=== PATIENT | male | born 1950 | race Hispanic/Latino ===

== ENCOUNTER 2020-04-22 23:47 | Emergency (ER) | payer MEDICARE ==
--- NOTE | 2020-04-23 00:19 | Emergency Department Report ---
ED Chest Pain HPI - General Chief Complaint: Chest Pain Stated Complaint: CHEST PAIN Time Seen by Provider: 04/23/20 00:07 Source: patient Mode of arrival: Ambulatory Limitations: No Limitations - History of Present Illness Initial Comments: This is a 69-year-old male who presents to the emergency department via EMS from home with complaint of left-sided chest pain with radiation to the left arm that started just prior to presentation, around 11 PM this evening. He has a tingling feeling going down the left arm. It is associated with some mild ruth ann rtness of breath. He denies any fever, abdominal pain, back pain, nausea, vomiting, diaphoresis. Currently his chest pain is 9 out of 10 in intensity. He did not take anything for his symptoms prior to presentation, but he received 3 sublingual nitroglycerin and 50 mcg of fentanyl in route with EMS without much relief. No alleviating factors, but the pain worsens with certain movements of his body. He has a past medical history of previous pulmonary embolism for which she is treated with 5 mg of Coumadin. He is a tobacco smoker but denies any illicit drug use. No family history of early cardiac disease or AL's. No recent travel or sick contacts at home. He does not have a primary care physician or cableway operator. Severity scale (0 -10): 6 - Related Data Home Medications Medication Instructions Recorded Confirmed Last Taken Coumadin 5 mg PO DAILY 04/23/20 04/23/20 Unknown Allergies Allergy/AdvReac Type Severity Reaction Status Date / Time aspirin Allergy Unknown Verified 06/13/13 19:26 Heart Score - HEART Score History: Slightly suspicious EKG: Normal Age: > 65 Risk factors: No known risk factors Troponin: < normal limit HEART Score: 2 - Critical Actions Critical Actions: 0-3 pts:0.9-1.7%risk of adverse cardiac event.Candidate for discharge ED Review of Systems ROS: Stated complaint: CHEST PAIN Other details as noted in HPI Comment: All other systems reviewed and negative Constitutional: denies: chills, fever Eyes: denies: eye pain, vision change ENT: denies: ear pain, throat pain Respiratory: shortness of breath. denies: cough Cardiovascular: chest pain. denies: palpitations Gastrointestinal: denies: abdominal pain, vomiting Genitourinary: denies: dysuria, discharge Musculoskeletal: denies: back pain, joint swelling Skin: denies: rash, lesions Neurological: paresthesias. denies: headache, weakness ED Past Medical Hx - Past Medical History Hx Congestive Heart Failure: No Hx Diabetes: No Hx Deep Vein Thrombosis: Yes Hx Pulmonary Embolism: Yes Hx Asthma: No Hx COPD: No Additional medical history: [place] filter placed at 2009 - Surgical History Past Surgical History?: Yes Additional Surgical History: Yaz filter - Social History Smoking Status: Never Smoker Substance Use Type: None - Medications Home Medications: Home Medications Medication Instructions Recorded Confirmed Last Taken Type Coumadin 5 mg PO DAILY 04/23/20 04/23/20 Unknown History ED Physical Exam - General Limitations: No Limitations - Other Other exam information: GENERAL: The patient is well-developed well-nourished. HENT: Normocephalic. Atraumatic. Patient has moist mucous membranes. EYES: Extraocular motions are intact. NECK: Supple. Trachea is midline. CHEST/LUNGS: Clear to auscultation. There is no respiratory distress noted. Chest pain is reproducible to palpation of the chest wall. No crepitus or defor mity. HEART/CARDIOVASCULAR: Regular. There is no tachycardia. There is no murmur. ABDOMEN: Abdomen is soft, nontender. Patient has normal bowel sounds. SKIN: Skin is warm and dry. NEURO: The patient is awake, alert, and oriented. The patient is cooperative. Normal speech. MUSCULOSKELETAL: There is no tenderness or deformity. ED Course Vital Signs 04/23/20 04/23/20 00:08 01:52 Temperature 98 F Pulse Rate 65 56 L Respiratory 16 16 Rate Blood Pressure 123/65 Blood Pressure 108/52 [Left] O2 Sat by Pulse 95 95 Oximetry - Reevaluation(s) Reevaluation #1: 04/23/20 05:13 Lab Results 04/23/20 04/23/20 04/23/20 Range/Units 00:45 00:45 00:45 WBC 4.5 (4.5-11.0) K/mm3 RBC 4.28 (3.65-5.03) M/mm3 Hgb 13.1 (11.8-15.2) gm/dl Hct 38.3 (35.5-45.6) % MCV 90 (84-94) fl MCH 31 (28-32) pg MCHC 34 (32-34) % RDW 14.8 (13.2-15.2) % Plt Count 142 (140-440) K/mm3 Lymph % (Auto) 43.6 H (13.4-35.0) % [place] % (Auto) 5.6 (0.0-7.3) % Eos % (Auto) 2.6 (0.0-4.3) % Baso % (Auto) 0.8 (0.0-1.8) % Lymph # (Auto) 2.0 (1.2-5.4) K/mm3 [place] # (Auto) 0.3 (0.0-0.8) K/mm3 Eos # (Auto) 0.1 (0.0-0.4) K/mm3 Baso # (Auto) 0.0 (0.0-0.1) K/mm3 Seg Neutrophils % 47.4 (40.0-70.0) % Seg Neutrophils # 2.1 (1.8-7.7) K/mm3 PT 16.6 H (12.2-14.9) Sec. INR 1.33 H (0.87-1.13) APTT 29.7 (24.2-36.6) Sec. D-Dimer (0-234) ng/mlDDU Sodium 141 (137-145) mmol/L Potassium 3.8 (3.6-5.0) mmol/L Chloride 105.6 (98-107) mmol/L Carbon Dioxide 24 (22-30) mmol/L Anion Gap 15 mmol/L BUN 9 (9-20) mg/dL Creatinine 0.9 (0.8-1.3) mg/dL Estimated GFR > 60 ml/min BUN/Creatinine Ratio 10 % Glucose 100 (75-100) mg/dL Calcium 9.1 (8.4-10.2) mg/dL Total Bilirubin 0.20 (0.1-1.2) mg/dL AST 12 (5-40) units/L ALT 11 (7-56) units/L Alkaline Phosphatase 80 (35-129) units/L Troponin T < 0.010 (0.00-0.029) ng/mL Total Protein 5.7 L (6.3-8.2) g/dL Albumin 3.6 L (3.9-5) g/dL Albumin/Globulin Ratio 1.7 % 04/23/20 04/23/20 Range/Units 03:30 03:30 WBC (4.5-11.0) K/mm3 RBC (3.65-5.03) M/mm3 Hgb (11.8-15.2) gm/dl Hct (35.5-45.6) % MCV (84-94) fl MCH (28-32) pg MCHC (32-34) % RDW (13.2-15.2) % Plt Count (140-440) K/mm3 Lymph % (Auto) (13.4-35.0) % [place] % (Auto) (0.0-7.3) % Eos % (Auto) (0.0-4.3) % Baso % (Auto) (0.0-1.8) % Lymph # (Auto) (1.2-5.4) K/mm3 [place] # (Auto) (0.0-0.8) K/mm3 Eos # (Auto) (0.0-0.4) K/mm3 Baso # (Auto) (0.0-0.1) K/mm3 Seg Neutrophils % (40.0-70.0) % Seg Neutrophils # (1.8-7.7) K/mm3 PT (12.2-14.9) Sec. INR (0.87-1.13) APTT (24.2-36.6) Sec. D-Dimer 158.20 (0-234) ng/mlDDU Sodium (137-145) mmol/L Potassium (3.6-5.0) mmol/L Chloride (98-107) mmol/L Carbon Dioxide (22-30) mmol/L Anion Gap mmol/L BUN (9-20) mg/dL Creatinine (0.8-1.3) mg/dL Estimated GFR ml/min BUN/Creatinine Ratio % Glucose (75-100) mg/dL Calcium (8.4-10.2) mg/dL Total Bilirubin (0.1-1.2) mg/dL AST (5-40) units/L ALT (7-56) units/L Alkaline Phosphatase (35-129) units/L Troponin T < 0.010 (0.00-0.029) ng/mL Total Protein (6.3-8.2) g/dL Albumin (3.9-5) g/dL Albumin/Globulin Ratio % Reevaluation #2: 04/23/20 05:14 Vital Signs 04/23/20 04/23/20 00:08 01:52 Temperature 98 F Pulse Rate 65 56 L Respiratory 16 16 Rate Blood Pressure 123/65 Blood Pressure 108/52 [Left] O2 Sat by Pulse 95 95 Oximetry MOSHE score - Moshe Score Age > 65: (1) Yes Aspirin use within the Past 7 Days: (0) No 3 or more CAD Risk Factors: (0) No 2 or more Angina events in past 24 hrs: (1) Yes Known CAD with more than 50% Stenosis: (0) No Elevated Cardiac Markers: (0) No ST Deviation Greater than 0.5mm: (0) No MOSHE Score: 2 ED Medical Decision Making - Lab Data Result diagrams: 04/23/20 00:45 04/23/20 00:45 - EKG Data -: EKG Interpreted by Me EKG shows normal: sinus rhythm (PVCs), axis, intervals, QRS complexes, ST-T waves Rate: normal - EKG Data When compared to previous EKG there are: previous EKG unavailable Interpretation: normal EKG (PVCs) - Radiology Data Radiology results: image reviewed interpreted by me: Chest x-ray does not show any acute process. There are no pleural effusions, obvious pneumonia and there is no pneumothorax. No significant cardiomegaly. - Medical Decision Making This patient presents to the emergency department with complaint of left-sided chest pain that started this evening. On examination there is reproducible tenderness to palpation along the chest wall without any crepitus or deformity. Chest x-ray does not show any pneumonia, pleural effusions, pneumothorax, focal consolidation, or any other acute process. EKG did not show any morphology consistent with ST elevation myocardial infarction or any dysrhythmia. Patient's labs have been mostly unremarkable including CBC, metabolic panel, negative troponins x2 and a negative D-dimer. He was given a dose of Toradol and upon reevaluation he is feeling greatly improved. The patient was seen resting comfortably, if not sleeping, multiple times throughout his ED course. He is low on the heart and MOSHE score. For all these reasons the patient appears safe for discharge home at this time. His contact information has been sent over to [facility], and someone from their office should be contacting him shortly for close outpatient follow-up as part of our [facility] low risk chest pain protocol. Patient will return to the emergency department with any worsening of his symptoms or with any acute distress. Critical Care Time: No Critical care attestation.: If time is entered above; I have spent that time in minutes in the direct care of this critically ill patient, excluding procedure time. ED Disposition Clinical Impression: Atypical chest pain, Chest wall pain Disposition: TO HOME OR SELFCARE Is pt being admited?: No Condition: Stable Instructions: Chest Pain (ED), Costochondritis (ED) Additional Instructions: Please follow-up with a primary care physician in the next few days. I am sending your contact information over to the [facility], and someone from their office should be contacting you shortly for close outpatient follow-up. I have also given you a referral for one of their cableway operator, Dr. Barnett, to make an appointment for follow-up in case they do not contact you in a reasonable amount of time. Return to the emergency department with any worsening of your symptoms, new or concerning symptoms not addressed during this current emergency department visit, or with any acute distress. Referrals: PRIMARY MD [facility] [Primary Care Provider] - 2-3 Days NITZA BARNETT MD [Staff Physician] - 2-3 Days CHRISTINE MONDRAGON MD [Staff Physician] - 2-3 Days [facility] [Provider Group] - 2-3 Days Time of Disposition: 05:03
--- NOTE | 2020-04-23 01:01 | XRay Report ---
CHEST 1 VIEW 12:28 AM INDICATION / CLINICAL INFORMATION: Chest pain. COMPARISON: 03/30/10. FINDINGS: SUPPORT DEVICES: None. HEART / MEDIASTINUM: The heart size and pulmonary vasculature are normal. The aorta is normal in me[place]ul [place]. LUNGS / PLEURA: No significant pulmonary or pleural abnormality. No pneumothorax. ADDITIONAL FINDINGS: No significant additional findings. IMPRESSION: No acute abnormality or significant change. Signer Name: Iggy Berger MD Signed: 04/23/2020 12:56 AM Workstation Name: [id number]
[2020-04-23 01:49] LABS: Basophils % (Auto) 0.8 % (0.0-1.8); Eosinophils # (Auto) 0.1 K/mm3 (0.0-0.4); Eosinophils % (Auto) 2.6 % (0.0-4.3); Hematocrit 38.3 % (35.5-45.6); Hemoglobin 13.1 gm/dl (11.8-15.2); Lymphocytes % (Auto) 43.6 % (13.4-35.0); Mean Corpuscular HGB Conc 34 % (32-34); Mean Corpuscular Volume 90 fl (84-94); Monocytes # (Auto) 0.3 K/mm3 (0.0-0.8); Monocytes % (Auto) 5.6 % (0.0-7.3); Platelet Count 142 K/mm3 (140-440); Red Blood Count 4.28 M/mm3 (3.65-5.03); Red Cell Distribution Width 14.8 % (13.2-15.2)
[2020-04-23 02:05] LABS: Alanine Aminotransferase 11 units/L (7-56); Albumin 3.6 g/dL (3.9-5); BUN/Creatinine Ratio 10; Blood Urea Nitrogen 9 mg/dL (9-20); Calcium 9.1 mg/dL (8.4-10.2); Hemolysis Index 2
[2020-04-23] MEDS ORDERED: KETOROLAC 30 MG/1 ML INJ IM ONE (02:14)
[2020-04-23 02:15] LABS: INR 1.33 (0.87-1.13)
[2020-04-23 02:16] LABS: Partial Thromboplastin Time 29.7 Sec. (24.2-36.6)
[2020-04-23 05:36] VITALS: BP 129/69
== END 2020-04-23 05:30 | disposition home or self-care (01) ==
LOC: ED 23:47
DX: R07.89 Other chest pain (principal); M79.602 Pain in left arm; Z86.711 Personal history of pulmonary embolism; Z86.718 Personal history of other venous thrombosis and embolism; Z98.890 Other specified postprocedural states; Z79.899 Other long term (current) drug therapy; Z88.8 Allergy status to other drugs, medicaments and biological substances
CPT/HCPCS: 36415; 71045; 80053; 84484; 85025; 85379; 85610; 85730; 93005; 96372; 99284; J1885

== ENCOUNTER 2020-06-07 20:39 | Emergency (ER) | payer MEDICARE ==
[2020-06-07] MEDS ORDERED: ACETAMINOPHEN 325 MG TAB ONE (23:01)
[2020-06-07 23:07] VITALS: BP 119/60
[2020-06-07] MEDS ORDERED: ACETAMINOPHEN 325 MG TAB PO ONE (23:43)
[2020-06-07 23:53] LABS: INR 1.08 (0.87-1.13)
[2020-06-07 23:54] LABS: Partial Thromboplastin Time 27.5 Sec. (24.2-36.6)
[2020-06-07 23:58] LABS: BUN/Creatinine Ratio 15; Blood Urea Nitrogen 18 mg/dL (9-20); Calcium 10.4 mg/dL (8.4-10.2); Hemolysis Index 43
[2020-06-08 00:16] LABS: Hematocrit 49.9 % (35.5-45.6); Hemoglobin 16.5 gm/dl (11.8-15.2); Mean Corpuscular HGB Conc 33 % (32-34); Mean Corpuscular Volume 90 fl (84-94); Red Blood Count 5.57 M/mm3 (3.65-5.03)
[2020-06-08 02:03] LABS: Platelet Count 187 K/mm3 (140-440)
[2020-06-08 02:09] LABS: Total Cells Counted 100
[2020-06-08 02:13] LABS: Anisocytosis 1+; Platelet Estimate Consistent w Auto
== END 2020-06-07 23:45 | disposition left against medical advice (07) ==
LOC: ED 20:39
DX: M79.604 Pain in right leg (principal); Z53.21 Procedure and treatment not carried out due to patient leaving prior to being seen by health care provider
CPT/HCPCS: 36415; 80048; 85007; 85025; 85610; 85730